=== PATIENT | female | born 1990 | race Asian ===

== ENCOUNTER → 2021-06-13 | Outpatient (CLI) | payer BC | LOC: DIA.ED 09:53 | DX: O24.419 Gestational diabetes mellitus in pregnancy, unspecified control (principal) | CPT/HCPCS: G0108 ==

== ENCOUNTER → 2021-06-30 | Outpatient (CLI) | payer BC | LOC: DIA.ED 08:21 | DX: O24.419 Gestational diabetes mellitus in pregnancy, unspecified control (principal) | CPT/HCPCS: G0108 ==

== ENCOUNTER 2021-08-31 06:34 | Inpatient (IN) | payer BC ==
[~2021-08-31] VITALS: Ht 157.5 cm; Wt 66.4 kg
[2021-08-31 19:30] VITALS: BP 112/63; PULSE 71; TEMP 98.2
[2021-08-31 20:30] VITALS: BP 105/70; PULSE 83
--- NOTE | 2021-08-31 20:54 | NUR ---
31 YO AT 41.3 WEEKS GESTATION TO LDR 4 FOR INDUCTION OF LABOR FOR POST DATES. PT HAS DIET CONTROLLED GDM WITH THIS . PT REPORTS A FEW IREG CTXS, DENIES VAGINAL BLEEDING OR LEAKING FLUID AND REPORTS GOOD ACTIVITY TODAY. INDUCTION PROCESS DISCUSSED WITH PT AND , ALL QUESTIONS ANSWERED
[2021-08-31 21:01] LABS: BASO % 0.2 % (0.0-2.0); EOS % 0.3 % (0.0-4.0); HEMOGLOBIN 12.8 g/dl (12.5-16.0); LYMPH # 1.6 K/mm3 (1.2-3.4); LYMPH % 15.1 % (20.0-51.0); MEAN CELL VOLUME 84 fl (80.0-100.0); MEAN CORPUSCULAR HEMOGLOBIN 29 pg (27-31); MEAN CORPUSCULAR HGB CONC 35 g/dl (33.0-37.0); MEAN PLATELET VOLUME 11.2 fl (7.4-10.4); MONO # 0.8 K/mm3 (0.1-0.6); MONO % 7.7 % (1.7-9.3); PLATELET COUNT 264 K/mm3 (130-400); RED BLOOD COUNT 4.42 M/mm3 (4.10-5.30); REDCELL DISTRIBUTION WIDTH-CV 13.3 % (11.5-14.5)
[2021-09-01] VITALS (42 sets, daily range): BP systolic 95–150; BP diastolic 51–80; PULSE 53–118; TEMP 97.7–98.5
--- NOTE | 2021-09-01 06:13 | NUR ---
RN UNABLE TO REACH CERVIX, PT TENSING UP WITH EXAM
--- NOTE | 2021-09-01 08:21 | NUR ---
0821- Patient calls RN to bedside and reports large gush of fluids. Moderate amount of clear fluid noted to pad. Amnitest positive. Cluadia care provided and patient assisted to bed. 0828- SVE by this RN . Patient requesting epidural. 0833- Roles on unit and updated on pt. See physician notification. Nnamdi Herrera GANTRY RIGGER notified pt requesting epidural. 0835- Roles to bedside and reviews plan of care with patient and spouse who verbalize understanding.
--- NOTE | 2021-09-01 11:05 | NUR ---
Patient reports pain in LLQ and increased pressure. Nnamdi Herrera CAR REPAIRER at bedside and doses epidural. See anesthesia record.
--- NOTE | 2021-09-01 12:05 | NUR ---
1205- SVE C/+2. Patient continues to feel pressure with contractions. Claudia care provided and pads changed. Dr. King updated on pt. See physician notification. 1218- Patient instructed on pushing with contractions. Verbalizes understanding. Patient begins to push with contractions with RN at bedside. Strong maternal effort noted. Moves vertex well. Small crown. 1220- Dr. King requested for delivery. See physician notification. Patient instructed on breathing through contractions. RN remains at bedside. 1235- Intermittent late decels. Patient wedge left. 1238- Dr. King to bedside for delivery. 1240- Patient pushing with contractions with Dr. King and nursing staff at bedside. 1246- Spontaneous vaginal delivery of viable female infant. to mother's chest where dried and stimulated by nursery RN. Pitocin paused. 1248- Cord clamped x2 and but by Dr. King. Care of assumed by Ashely Reyes RN. Spontaneous and intact delivery of placenta. Moderate amount of lochia noted. Fundal massage by Dr. King. 1250- Straight cath by Dr. King. 1254- Patient reports increased pain with repair. Lidocain inj by Dr. King. See emar. Third degree perineal laceration repair by Dr. King. Moderate amount of lochia noted. 1255- Methergine IM. See emar. 1256- Patient continues to report increased pain with perineal repair. Nnamdi Herrera FACILITIES MAINTENANCE SUPERVISOR at bedside and doses epidural. 1300- Fundus firm, midline, and bleeding minimal. Claudia care provided, pads changed, and ice pack to perineum. Plan of care and safety precautions reviewed with pt who verbalizes understanding. See doctor dictation, anesthesia record, and nurses notes.
[2021-09-02 04:00] VITALS: BP 87/53; PULSE 63; TEMP 97.8
[2021-09-02 07:45] VITALS: BP 99/58; PULSE 69; TEMP 97.8
[2021-09-02] MEDS ORDERED: IBU800 M1 PO (09:53)
[2021-09-02 11:30] VITALS: BP 95/43; PULSE 87; TEMP 97.9
== END 2021-09-02 15:40 | disposition home or self-care (01) | DRG 768 ==
LOC: LDR 06:34 → OB 09:52 → LDR 18:51 → OB 09-01 15:00
PROVIDERS: ADMIT Obstetrics & Gynecology
PROC: 10E0XZZ Delivery of Products of Conception, External Approach (ICD-10-PCS; principal; 2021-08-31)
PROC: 0DQR0ZZ Repair Anal Sphincter, Open Approach (ICD-10-PCS; 2021-08-31)
PROC: 3E0P7VZ Introduction of Hormone into Female Reproductive, Via Natural or Artificial Opening (ICD-10-PCS; 2021-08-31)
PROC: 3E033VJ Introduction of Other Hormone into Peripheral Vein, Percutaneous Approach (ICD-10-PCS; 2021-08-31)
DX: O48.0 Post-term pregnancy (principal); Z37.0 Single live birth; O70.20 Third degree perineal laceration during delivery, unspecified; O24.420 Gestational diabetes mellitus in childbirth, diet controlled; Z3A.41 41 weeks gestation of pregnancy; Z23 Encounter for immunization
CPT/HCPCS: J2210; J2590; J7120